=== PATIENT | male | born 1990 | race Caucasian/White ===

== ENCOUNTER 2017-02-16 17:16 | Emergency (ER) | payer MEDICAID ==
[2017-02-16 17:31] VITALS: TEMP 98.4
--- NOTE | 2017-02-16 17:56 | CPEKG ---
Heart Rate: 66 RR Interval: 909 P-R Interval: 124 QRSD Interval: 138 QT Interval: 408 QTC Interval: 428 P Dover: 74 QRS Dover: 140 T Wave Dover: 49 EKG Severity - ABNORMAL ECG - EKG Impression: A-V DUAL-PACED COMPLEXES W/ SOME INHIBITION Electronically Signed By: Obi Rodriguez 16-Feb-2017 20:59:28
[2017-02-16 18:33] LABS: % IMMATURE GRANULYOCYTES 0.1 % (0.0-1.1); ABSOLUTE IMMATURE GRANULOCYTES 0.01 10^3/uL (0.00-0.10); ADD DIFF? NO; ADD MORPH? NO; ADD SCAN? NO; ATYPICAL LYMPHOCYTE FLAG 0 (0-99); FRAGMENT RBC FLAG 0 (0-99); HEMATOCRIT 46.9 % (40.0-51.0); HEMOGLOBIN 15.8 g/dL (13.7-17.5); LEFT SHIFT FLG 0 (0-99); LIPEMIA HEMOLYSIS FLAG 80 (0-99); MEAN CELL HEMOGLOBIN 30.1 pg (27.9-34.1); MEAN CELL HEMOGLOBIN CONCENTR. 33.7 g/dL (32.4-36.7); MEAN CELL VOLUME 89.3 fL (81.5-99.8); MEAN PLATELET VOLUME 9.4 fL (8.7-11.7); PLATELET CLUMPS FLAG 0 (0-99); PLATELET COUNT 233 10^3/uL (150-400); RED BLOOD CELL COUNT 5.25 10^6/uL (4.40-6.38)
[2017-02-16 18:43] LABS: ANION GAP 12 mEq/L (8-16); CALCIUM 9.5 mg/dL (8.5-10.4); CARBON DIOXIDE 26 mEq/l (22-31); CHLORIDE 104 mEq/L (97-110); GLOMERULAR FILTRATION RATE > 60; GLUCOSE 76 mg/dL (70-100); POTASSIUM 4.1 mEq/L (3.5-5.2); SODIUM 142 mEq/L (134-144)
--- NOTE | 2017-02-16 18:48 | EDPHY ---
HPI/HX/ROS/PE/MDM Narrative: CHIEF COMPLAINT: "Lung pain" HISTORY OF PRESENT ILLNESS: The patient is a 26-year-old male with history of aortic stenosis s/p valve replacement, and complete heart block necessitating pacemaker placement, who presents with a sensation of chest fullness that started last night when going to bed. The patient reports a sensation of an " air pocket in my lungs." This pain is worse with deep inhalation. The pain is localized to the substernal region. It has remained constant since onset. Patient additionally notes acute rash to the right axillary region that is itchy and red. He states it does not feel similar to previous chest pain. He denies shortness of breath or lightheadedness. No recent URI symptoms. Takes 81mg Aspirin daily. Patient states he had aortic valve stenosis with valve replaced in Aug 2016. After surgery there were complications causing a complete heart block and patient had pacemaker placed. 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 He had the valve replaced again and his Pacemaker was switched to the other side of his chest. REVIEW OF SYSTEMS: Aside from elements discussed in the HPI, a comprehensive 10-point review of systems was reviewed and is negative. PAST MEDICAL HISTORY: Aortic stenosis, Pacemaker SOCIAL HISTORY: No history of IV drug use. Nonsmoker. No alcohol use. No marijuana use. VITAL SIGNS: Reviewed by me GENERAL: Well-developed, well-nourished, resting comfortably in no respiratory distress. HEENT: Atraumatic. Eyes: No icterus, no injection. Mouth: moist mucous membranes. No erythema or lesions. Neck: supple with no adenopathy. LUNGS: Clear to auscultation bilaterally, no wheezes, rhonchi or rales. CARDIAC: Systolic murmur with good valve click. No chest wall tenderness. ABDOMEN: Soft, nontender, nondistended, bowel sounds normal. BACK: No CVA tenderness. EXTREMITIES: No trauma. No edema. Range of motion is normal throughout. NEURO: Alert and oriented, grossly nonfocal. SKIN: Warm and dry, no rash. PSYCHIATRIC: Normal mentation, no agitation. ED Course: Patient with cardiac history presents with substernal chest pain. His pain is worse with inhalation. He has no history of reflux. Patient has normal exam. Plan for GI cocktail. The 12 lead EKG was interpreted by myself. See hard copy and/or "tracemaster" electronic copy for interpretation. A-V Dual-paced complexes with some inhibition. Patient's lab work is unremarkable. Troponin is negative. D-dimer is normal. Chest x-ray is negative for acute findings. No history of fever or IVDA. Feel endocarditis is not likely. 2020: I reevaluated the patient. His discomfort slightly improved after Gi cocktail. I discussed findings with the patient. He would like to be discharged home at this time. MDM: After history and physical examination, the differential for chest pain was considered, including but not limited to, myocardial ischemia, acute coronary syndrome, pulmonary embolus, PTX, pneumomediastinum, chest wall pain, reflux, pleural inflammation and pulmonary infectious causes. - Data Points Imaging: Discussed imaging studies w/ body recall instructor Radiologist Laboratory Results: Laboratory Results 02/16/17 17:40 02/16/17 17:40 Medications Given: Discontinued Medications Al Hydroxide/Mg Hydroxide (Maalox Susp) 30 ml PO ONCE ONE Stop: 02/16/17 19:30 Last Admin: 02/16/17 20:04 Dose: 30 ml Hyoscyamine Sulfate (Levsin, Hyomax-Sl) 0.25 mg PO ONCE ONE Stop: 02/16/17 19:30 Last Admin: 02/16/17 19:55 Dose: 0.25 mg Lidocaine (Lidocaine 2% Viscous) 15 ml PO ONCE ONE Stop: 02/16/17 19:30 Last Admin: 02/16/17 20:04 Dose: 15 ml General Time Seen by Provider: 02/16/17 18:08 Initial Vital Signs: Initial Vital Signs Temperature (C) 36.9 C 02/16/17 17:28 Heart Rate 74 02/16/17 17:28 Respiratory Rate 16 02/16/17 17:28 Blood Pressure 97/68 L 02/16/17 17:28 O2 Sat (%) 95 02/16/17 17:28 O2 Delivery Mode Room Air Allergies/Adverse Reactions: No Known Allergies Allergy (Unverified 02/16/17 17:34) Home Medications: Medication Instructions Recorded Aspirin 02/16/17 Cephalexin [Keflex (RX)] 500 mg PO QID 5 Days 02/16/17 Departure - Departure Disposition: Home, Routine, Self-Care Clinical Impression: Chest pain, Chest wall pain, Rash Condition: Good Instructions: Chest Pain (ED) Additional Instructions: Followup with your cracker and cookie machine operator if symptoms persist. For your rash I recommend Cetaphil or Hibiclens. Consider baby powder to keep the area dry. Try to keep the area clean and dry. Avoid heavy deodorants. If the rash is worsening despite this treatment, you may start the Keflex. You have been referred to [facility], they accept Medicaid. Referrals: [facility],. [Clinic] - As per Instructions Prescriptions: Cephalexin [Keflex (RX)] 500 mg PO QID 5 Days Report Scribed for: Annabelle Huffman Report Scribed by: Diane Matute Date of Report: 02/16/17 Time of Report: 18:48 Physician Review and Approval Statement: Portions of this note were transcribed by a medical assistant float. I personally performed a history, physical exam, medical decision making, and confirmed accuracy of information the transcribed note.
[2017-02-16 18:56] VITALS: O2SAT 97
[2017-02-16 18:56] LABS: TROPONIN I < 0.012 ng/mL (0-0.034)
[2017-02-16] MEDS ORDERED: HYOSCYAMINE SULFATE 0.125 MG TAB PO ONE (19:29)
[2017-02-16] MEDS ORDERED: LIDOCAINE 2% VISCOUS 15 ML UDCUP PO ONE (19:29)
[2017-02-16] MEDS ORDERED: MAG HYDROX/AL HYDROX/SIMETH 30 ML UDCUP PO ONE (19:29)
[2017-02-16 20:44] VITALS: BP 104/76; PULSE 65; RESP 16
== END 2017-02-16 20:45 | disposition home or self-care (01) ==
DX: R07.89 Other chest pain (principal); R21 Rash and other nonspecific skin eruption; Z79.82 Long term (current) use of aspirin; Z95.0 Presence of cardiac pacemaker

== ENCOUNTER 2017-07-27 20:42 | Emergency (ER) | payer MEDICAID ==
[2017-07-27 20:49] VITALS: BP 115/83; PULSE 92; RESP 16; TEMP 98.1; O2SAT 96
--- NOTE | 2017-07-27 21:34 | EDPHY ---
H & P Stated Complaint: c/o general malaise/cough/nausea x 1 day HPI/ROS: Chief complaint: Cold symptoms History of present illness: This is a 26-year-old male with an extensive cardiac history who presents to the emergency department for evaluation of cold symptoms. He reports the onset of symptoms over the last day. He primarily reports chills, body aches, slight nonproductive cough and generalized malaise. No report of fever. No URI like symptoms. No headache or neck pain. No rash. Review of systems: A 10 point review of systems was obtained and other than described above was negative - Personal History Tetanus Vaccine Date: probably <10 years (as of 2014) - Medical/Surgical History Hx Asthma: No Hx Chronic Respiratory Disease: No Hx Diabetes: No Hx Cardiac Disease: Yes Hx Renal Disease: No Hx Cirrhosis: No Hx Alcoholism: No Hx HIV/AIDS: No Hx Splenectomy or Spleen Trauma: No Other PMH: aortic stenosis, angioplasty x2, AORTIC VALVE REPLACEMENT, endocarditis, pacemaker placement - Social History Smoking Status: Former smoker - Physical Exam Exam: General Appearance: Alert and no distress. Eyes: Pupils equal and round no injection. ENT: Tympanic membranes, external auditory canals, external ears and surrounding soft tissue including over the mastoids are unremarkable. Nasopharynx is not injected. There is no rhinorrhea. Oropharynx is mildly injected. There is no edema. There is no exudate. There is no asymmetry. The uvula is midline. No elevation of the tongue. There is no hoarseness, no drooling, no trismus, no stridor. Respiratory: Chest is non tender, lungs are clear to auscultation. Cardiac: regular rate and rhythm Musculoskeletal: Neck is supple and non tender. Extremities have full range of motion and are non tender. Skin: No rashes or lesions. Neurological: Alert and oriented x4. Strength and sensation intact and symmetrical. No meningismus. Constitutional: Initial Vital Signs Temperature (C) 36.7 C 07/27/17 20:46 Heart Rate 92 07/27/17 20:46 Respiratory Rate 16 07/27/17 20:46 Blood Pressure 115/83 H 07/27/17 20:46 O2 Sat (%) 96 07/27/17 20:46 O2 Delivery Mode Room Air Allergies/Adverse Reactions: No Known Allergies Allergy (Verified 07/27/17 20:49) Home Medications: Medication Instructions Recorded Aspirin 02/16/17 Oseltamivir Phosphate [Tamiflu 75 75 mg PO BID #9 cap 07/27/17 mg (*)] Medical Decision Making ED Course/Re-evaluation: Patient is seen under the supervision of my secondary supervising physician Dr. Dewayne Fraser. Patient presents to the emergency department for cold symptoms. Ultimately he is influenza A positive. He is within treatment time frame. Given his comorbidities I do believe he should be treated with Tamiflu. He is started on it in the emergency room. He is nontoxic. I believe he is appropriate for outpatient management. Home care is discussed. He is to follow up with his primary care doctor this week for recheck. Return precautions are given. Patient voiced understanding and agreement with plan. Differential Diagnosis: Included but not limited to influenza, other viral syndromes, bronchitis, pneumonia - Data Points Laboratory Results: 07/27/17 21:30 Nasal Influenza A PCR FLU A DETECTED (NEGATIVE) Nasal Influenza B PCR NEGATIVE FOR FLU B (NEGATIVE) Medications Given: Discontinued Medications Oseltamivir Phosphate (Tamiflu) 75 mg PO EDNOW ONE Stop: 07/27/17 22:13 Last Admin: 07/27/17 22:19 Dose: 75 mg Departure - Departure Disposition: Home, Routine, Self-Care Clinical Impression: Influenza A Condition: Good Instructions: Influenza (ED) Additional Instructions: Follow-up with her primary care doctor this week for recheck Take Tamiflu as prescribed until finished even feeling better If symptoms worsen or new symptoms develop return to the emergency room for recheck Referrals: NONE *PRIMARY CARE P,. [Primary Care Provider] - As per Instructions [facility],. [Clinic] - As per Instructions Rell Valencia MD [Medical Doctor] - As per Instructions Prescriptions: Oseltamivir Phosphate [Tamiflu 75 mg (*)] 75 mg PO BID #9 cap
[2017-07-27] MEDS ORDERED: OSELTAMIVIR PHOSPHATE 75 MG CAP PO ONE (22:12)
== END 2017-07-27 22:22 | disposition home or self-care (01) ==
DX: J11.1 Influenza due to unidentified influenza virus with other respiratory manifestations (principal); Z79.82 Long term (current) use of aspirin; Z87.891 Personal history of nicotine dependence; Z95.0 Presence of cardiac pacemaker